=== PATIENT | female | born 1960 | race Caucasian/White ===

== ENCOUNTER → 2020-07-10 | Outpatient (CLI) | payer MEDICARE ==
[2020-07-10 12:36] LABS: African American GFR (CKD) >90 (>60 ml/min/1.73 sqM); Blood Urea Nitrogen 15 mg/dL (7-17); Magnesium 1.9 mg/dL (1.6-2.3); Non-African American GFR(CKD) 79 (>60 ml/min/1.73 sqM)
== END | disposition home or self-care (01) ==
LOC: LABPAT 11:12
PROVIDERS: ATTEND Internal Medicine Interventional Cardiology
DX: Z01.818 Encounter for other preprocedural examination (principal); R07.9 Chest pain, unspecified
CPT/HCPCS: 36415; 82565; 83735; 84520

== ENCOUNTER 2022-02-20 20:27 | Emergency (ER) | payer BC ==
[2022-02-20 20:49] VITALS: TEMP 96.7
[2022-02-20] MEDS ORDERED: HYDROmorphone 0.5 MG/0.5 ML SYRINGE IVP STA (20:54)
--- NOTE | 2022-02-20 20:56 | ED ---
General Adult HPI - General Source: patient, EMS, RN notes reviewed, old records reviewed Mode of arrival: EMS - History of Present Illness -: hour(s) (1) Location: left, lower extremity (hip) Radiation: distal Severity scale (1-10): 10 Quality: sharp, constant Consistency: constant Improves with: immobilization Worsens with: movement Associated Symptoms: denies other symptoms Treatments Prior to Arrival: other (iv morphine by ems) <Mich Larios - Last Filed: 02/21/22 02:44> <Jean Carlos Simons - Last Filed: 02/21/22 09:12> - General Chief complaint: Extremity Injury, Lower Stated complaint: fall, hip injury Time Seen by Provider: 02/20/22 20:50 - History of Present Illness Initial comments: 61-year-old female presents alert and oriented 4 with complaints of left hip pain. She states that she was weeding her garden and she felt her left hip pop. She has had a history of a left hip replacement and had a dislocation 3 months after her initial surgery. She has not had any recent dislocations. She states this feels similar to when she had dislocation it in the past. (Mich Larios) - Related Data Home Medications Medication Instructions Recorded Confirmed Amoxicillin 500 mg PO Q8H 02/20/22 02/20/22 Desvenlafaxine [Pristiq ER] 100 mg PO DAILY 02/20/22 02/20/22 Losartan/Hydrochlorothiazide 1 tab PO DAILY 02/20/22 02/20/22 [Hyzaar 100-25 Tablet] Multivitamins, Thera [Multivitamin 1 tab PO DAILY 02/20/22 02/20/22 (formulary)] rOPINIRole HCL [Requip] 0.25 mg PO HS 02/20/22 02/20/22 Allergies Allergy/AdvReac Type Severity Reaction Status Date / Time No Known Allergies Allergy Verified 02/20/22 21:57 Review of Systems ROS Other: All systems not noted in ROS Statement are negative. <Mich Larios - Last Filed: 02/21/22 02:44> ROS Other: All systems not noted in ROS Statement are negative. <Jean Carlos Simons - Last Filed: 02/21/22 09:12> ROS Statement: Those systems with pertinent positive or pertinent negative responses have been documented in the HPI. Past Medical History Past Surgical History: Joint Replacement <Mich Larios - Last Filed: 02/21/22 02:44> General Exam General appearance: alert, in distress (Related to pain) Head exam: Present: atraumatic Eye exam: Present: normal appearance Respiratory exam: Present: normal lung sounds bilaterally. Absent: respiratory distress, accessory muscle use Cardiovascular Exam: Present: regular rate, normal rhythm GI/Abdominal exam: Present: soft. Absent: distended, tenderness Left Hip exam: Present: tenderness, internal rotation Upper Leg exam: Absent: tenderness Knee exam: Absent: tenderness Neurovascular tendon exam: Present: no vascular compromise. Absent: abnormal cap refill, extremity cold to touch, pallor, foot drop Neurological exam: Present: alert, oriented X3 Psychiatric exam: Present: normal affect, normal mood Skin exam: Present: warm, dry, normal color. Absent: cyanosis, diaphoretic, pallor <Mich Larios - Last Filed: 02/21/22 02:44> Course Vital Signs 02/20/22 02/20/22 02/20/22 20:42 22:21 22:47 Temperature 96.7 F L Pulse Rate 71 73 76 Respiratory 18 17 19 Rate Blood Pressure 135/76 155/73 134/72 O2 Sat by Pulse 98 95 96 Oximetry 02/20/22 23:00 Temperature Pulse Rate 79 Respiratory 16 Rate Blood Pressure 128/71 O2 Sat by Pulse 93 L Oximetry Procedures - Orthopedic Joint Reduction Joint #1 Consent Obtained: verbal consent Side: left Joint Reduction Location: hip Analgesia: procedural sedation Post-Reduction Neuro Exam: intact Post-Reduction Vascular Exam: intact Post Reduction X-Ray Obtained: Yes Post Reduction X-Ray Results: reduced Splint Applied: Yes (Knee immobilizer) Patient Tolerated Procedure: well <Mich Larios - Last Filed: 02/21/22 02:44> - Procedural Sedation Procedural Sedation Start Time: 22:21 Procedural Sedation Stop Time: 22:57 Indications: fracture/dislocation reduction ASA Class: II Mallampati Airway Score: 3 Preparation: earth science professor applied, pulse oximeter, capnometry used, supplemental O2 applied, suction/airway equipment at bedside, IV secured IV Propofol Dose (mgs): 140 Complications: none Patient Tolerated Procedure: well, no complications <Jean Carlos Simons - Last Filed: 06/04/22 09:12> - Procedural Sedation Additional Comments: The patient did require second round of medication for repeat attempt of reduction. (Jean Carlos Simons) Medical Decision Making <Mich Larios - Last Filed: 02/21/22 02:44> <Jean Carlos Simons - Last Filed: 02/21/22 09:12> - Medical Decision Making X-ray shows a left total hip prosthesis posterior dislocation, no evidence of fracture. Patient was given propofol and after multiple attempts we were able to reduce the dislocation. Patient is neurovascularly intact prior to and post reduction The patient was put in a knee immobilizer and was able to ambulate in the emergency room. She'll be discharged home to follow up with orthopedics. Patient's questions were answered and she was agreeable to discharge. Dr. Simons was at bedside. (Mich Larios) Please note that I did perform the procedural sedation myself. I also did perform a closed reduction of the left hip. Note that 2 attempts were required, patient tolerated well with no complications. (Jean Carlos Simons) Disposition Is patient prescribed a controlled substance at d/c from ED?: No Time of Disposition: 23:44 <Mich Larios - Last Filed: 02/21/22 02:44> <Jean Carlos Simons - Last Filed: 02/21/22 09:12> Clinical Impression: Hip dislocation, left Disposition: HOME SELF-CARE Condition: Good Instructions (If sedation given, give patient instructions): Hip Dislocation (ED) Additional Instructions: Wear knee immobilizer and use a hip abductor pillow when sleeping. Follow-up with orthopedics next week. Return to the emergency room with any new or concerning symptoms. Referrals: Rene Rai DO [Primary Care Provider] - 1-2 days Phil Hogan DO [Doctor of Osteopathic Medicine] - 1-2 days
--- NOTE | 2022-02-20 21:35 | XR ---
EXAMINATION TYPE: XR Hip LT and AP Pelvis DATE OF EXAM: 02/20/2022 9:22 PM INDICATION: Patient age:Female; 62 years old; Reason for study: hip pain; COMPARISON: None. TECHNIQUE: The left hip was examined in the frontal and lateral projections and a AP pelvis. FINDINGS: Left hip arthroplasty with displaced femoral head component out of the cup and positioned s uperiorly and posterior. Osseous structures appear intact. Stem appears positioned within the femur. No periprosthetic lo lucency to suggest loosening identified. IMPRESSION: 1. Left total hip prosthesis posterior dislocation. Hardware is otherwise intact. 2. No evidence of acute fracture.
[2022-02-20] MEDS ORDERED: PROPOFOL 10 MG/ML 20 ML VIAL IV ONE (22:14)
[2022-02-20 23:07] VITALS: BP 128/71; PULSE 79; RESP 16
--- NOTE | 2022-02-20 23:09 | XR ---
EXAMINATION TYPE: XR Hip Limited LT DATE OF EXAM: 02/20/2022 COMPARISON: Today HISTORY: Postreduction TECHNIQUE: Single view FINDINGS: There is persistent dislocation of the prosthetic femoral head. IMPRESSION: Left hip prosthesis dislocation without change.
--- NOTE | 2022-02-20 23:29 | XR ---
EXAMINATION TYPE: XR Hip Limited LT DATE OF EXAM: 02/20/2022 COMPARISON: Today HISTORY: Post reduction TECHNIQUE: FINDINGS: There is anatomic position of the hip prosthesis. No fracture seen. IMPRESSION: Anatomic reduction.
== END 2022-02-21 01:04 | disposition home or self-care (01) ==
LOC: EC 20:27
DX: S73.005A Unspecified dislocation of left hip, initial encounter (principal); W19.XXXA Unspecified fall, initial encounter; Y93.H2 Activity, gardening and landscaping
CPT/HCPCS: 73501; 73502; 27250; 99284; 96374; J2704; J1170

== ENCOUNTER → 2022-05-28 | Outpatient (CLI) | payer BC ==
--- NOTE | 2022-06-03 15:40 | MM ---
Reason for Exam: Screening (asymptomatic). Last mammogram was performed 4 year(s) and 9 month(s) ago. Patient History: Menarche at age 14. First Full-Term at age 24. Left ovary removed at age 46. Right ovary removed at age 46. Hysterectomy at age 46. Postmenopausal. 2004, Stereotactic Core Biopsy on the Right side. Sister had breast cancer, age 61. Risk Values: Justa 5 year model risk: 3.3%. NCI Lifetime model risk: 13.7%. Prior Study Comparison: 11/19/2011 Screening Mammogram, [facility]. 02/23/2013 Screening Mammogram, [facility]. 09/01/2017 Bilateral Diagnostic Mammogram, [facility]. Tissue Density: The breast tissue is heterogeneously dense. This may lower the sensitivity of mammography. Findings: Analyzed By CAD. There is no suspicious group of microcalcifications or new suspicious mass in either breast. Right breast biopsy clip. Overall Assessment: Benign, BI-RAD 2 Management: Screening Mammogram of both breasts in 1 year. A clinical breast exam by your physician is recommended on an annual basis and results should be correlated with mammographic findings. Electronically signed and approved by: Gulshna Vega DO
== END | disposition home or self-care (01) ==
LOC: RADMAMWWP 09:20
PROVIDERS: ATTEND Family Medicine
DX: Z12.31 Encounter for screening mammogram for malignant neoplasm of breast (principal); Z78.0 Asymptomatic menopausal state; Z80.3 Family history of malignant neoplasm of breast
CPT/HCPCS: 77063; 77067

== ENCOUNTER → 2023-07-08 | Outpatient (CLI) | payer BC ==
--- NOTE | 2023-07-09 11:44 | MM ---
Reason for Exam: Screening (asymptomatic). Last mammogram was performed 1 year(s) and 1 month(s) ago. Patient History: Menarche at age 14. First Full-Term at age 24. Left ovary removed at age 46. Right ovary removed at age 46. Hysterectomy at age 46. Postmenopausal. 2004, Stereotactic Core Biopsy on the Right side. Sister had breast cancer, age 61. Risk Values: Justa 5 year model risk: 3.4%. NCI Lifetime model risk: 13.3%. Prior Study Comparison: 02/23/2013 Screening Mammogram, [facility]. 09/01/2017 Bilateral Diagnostic Mammogram, [facility]. 05/28/2022 Bilateral MG 3D screening mammo w/cad, [facility]. Tissue Density: The breast tissue is heterogeneously dense. This may lower the sensitivity of mammography. Findings: Analyzed By CAD. There is no suspicious group of microcalcifications or new suspicious mass in either breast. Overall Assessment: Negative, BI-RAD 1 Management: Screening Mammogram of both breasts in 1 year. . Patient should continue monthly self-breast exams. A clinical breast exam by your physician is recommended on an annual basis. This exam should not preclude additional follow-up of suspicious palpable abnormalities. Note on Justa scores and lifetime risk: 1. A Justa score greater than 3% is considered moderate risk. If this is the case, consider specialist referral to assess eligibility for a risk reducing agent. 2. If overall lifetime risk for the development of breast cancer is 20% or higher, the patient may qualify for future screening with alternating mammogram and breast MRI. Electronically signed and approved by: Clark Abad M.D. Radiologis
== END | disposition home or self-care (01) ==
LOC: RADMAMWWP 08:21
PROVIDERS: ATTEND Family Medicine
DX: Z12.31 Encounter for screening mammogram for malignant neoplasm of breast (principal); Z78.0 Asymptomatic menopausal state; Z80.3 Family history of malignant neoplasm of breast
CPT/HCPCS: 77063; 77067